=== PATIENT | male | born 1960 | race Caucasian/White ===

== ENCOUNTER → 2018-11-09 | Outpatient (CLI) | payer BC | LOC: RAD 07:57 | DX: Z01.818 Encounter for other preprocedural examination (principal); I10 Essential (primary) hypertension; R05 Cough ==

== ENCOUNTER → 2019-03-18 | Outpatient (CLI) | payer MEDICARE, OTHER | LOC: PT 13:27 | DX: Z01.818 Encounter for other preprocedural examination (principal) ==

== ENCOUNTER 2019-04-22 14:30 | Outpatient (RCR) | payer MEDICARE, OTHER | END 2019-04-22 15:00 | disposition still patient (30) | LOC: PT 14:30 | DX: M25.362 Other instability, left knee (principal); Z96.652 Presence of left artificial knee joint ==

== ENCOUNTER 2020-06-24 02:01 | Emergency (ER) | payer MEDICARE, OTHER ==
[~2020-06-24] VITALS: Ht 188 cm; Wt 172.7 kg
[2020-06-24] MEDS ORDERED: TENORMIN100 MG PO (02:12)
[2020-06-24] MEDS ORDERED: QUALITY CHOICE81 M2 PO (02:13)
[2020-06-24] MEDS ORDERED: PROSCAR PO (02:13)
[2020-06-24] MEDS ORDERED: FLOMAX0.4 MG PO (02:13)
[2020-06-24] MEDS ORDERED: FISH OIL REGUL300 MG PO (02:14)
[2020-06-24] MEDS ORDERED: PRILOSEC 20MG20 MG PO (02:14)
[2020-06-24] MEDS ORDERED: MOBIC15 M1 PO (02:14)
[2020-06-24] MEDS ORDERED: GNC NIACIN 250250 MG PO (02:15)
[2020-06-24] MEDS ORDERED: ESSENTIAL DAIL1 EACH PO (02:15)
[2020-06-24 03:23] LABS: EOS # 0.3 (0.04-0.40); EOS % 4.7 % (0.0-4.0); HEMATOCRIT 43.1 % (42.0-52.0); HEMOGLOBIN 14.6 g/dL (13.5-18.0); MEAN CELL VOLUME 91 fl (78-100); MEAN CORPUSCULAR HEMOGLOBIN 31 pg (27-31); MEAN CORPUSCULAR HGB CONC 34 g/dL (33-37); MEAN PLATELET VOLUME 8.9 fl (7.4-10.4); MONO # 0.6 (0.20-0.80); NEU # 3.3 (1.40-6.50); PLATELET COUNT 188 K/mm3 (130-400); RED BLOOD COUNT 4.73 M/mm3 (4.20-5.60); RED CELL DISTRIBUTION WIDTH 12.5 % (11.5-14.5); WHITE BLOOD COUNT 6.2 K/mm3 (4.8-10.8)
[2020-06-24 03:33] LABS: ALBUMIN 3.9 g/dL (3.5-5.0); POTASSIUM 4.3 mmol/L (3.5-5.1); SODIUM 140 mmol/L (136-145)
[2020-06-24 03:34] LABS: CALCIUM 8.4 mg/dL (8.3-10.5)
[2020-06-24 03:35] LABS: GLUCOSE 119 mg/dL (75-110); TOTAL PROTEIN 6.8 g/dL (6.4-8.3)
[2020-06-24 03:36] LABS: CARBON DIOXIDE 25 mmol/L (22-29)
[2020-06-24 03:37] LABS: TOTAL BILIRUBIN 0.5 mg/dL (0.2-1.2)
[2020-06-24 03:41] LABS: AST-SGOT 24 U/L (5-34)
[2020-06-24 03:42] LABS: ALT/SGPT 38 U/L (0-55)
[2020-06-24 03:48] LABS: TROPONIN-I < 0.03 ng/mL (<0.030)
[2020-06-24 03:52] LABS: URINE APPEARANCE CLEAR; URINE BILIRUBIN NEGATIVE (NEGATIVE); URINE BLOOD NEGATIVE (NEGATIVE); URINE COLOR YELLOW; URINE GLUCOSE NEGATIVE (NEGATIVE); URINE KETONE NEGATIVE (NEGATIVE); URINE LEUKOCYTE ESTERASE NEGATIVE (NEGATIVE); URINE NITRATE NEGATIVE (NEGATIVE); URINE PROTEIN(semi-quant) NEGATIVE (NEGATIVE); URINE UROBILINOGEN NORMAL (NORMAL); URINE WBC 0-1 /hpf (0-3)
[2020-06-24 03:53] LABS: URINE MUCUS PRESENT (NOT PRESENT)
[2020-06-24 04:38] VITALS: BP 162/85
== END 2020-06-24 04:38 | disposition home or self-care (01) ==
LOC: ED 02:01
PROVIDERS: Nurse Practitioner
DX: F41.9 Anxiety disorder, unspecified (principal); I10 Essential (primary) hypertension; F43.9 Reaction to severe stress, unspecified; Z88.1 Allergy status to other antibiotic agents; Z88.8 Allergy status to other drugs, medicaments and biological substances; Z79.82 Long term (current) use of aspirin

== ENCOUNTER 2021-02-21 20:58 | Emergency (ER) | payer MEDICARE, OTHER ==
[~2021-02-21 20:58] MED LIST: ESSENTIAL DAIL1 EACH PO; FISH OIL REGUL300 MG PO; FLOMAX0.4 MG PO; GNC NIACIN 250250 MG PO; MOBIC15 M1 PO; PRILOSEC 20MG20 MG PO; PROSCAR PO; QUALITY CHOICE81 M2 PO; TENORMIN100 MG PO
[2021-02-21] MEDS ORDERED: AMLODIPINE BESYL5 MG PO (21:56)
[2021-02-21 22:19] LABS: EOS # 0.03 (0.04-0.40); EOS % 0.3 % (0.0-4.0); HEMATOCRIT 43.3 % (42.0-52.0); HEMOGLOBIN 14.5 g/dL (13.5-18.0); LYMPH# 2.44 (1.50-4.00); MEAN CELL VOLUME 94 fl (78-100); MEAN CORPUSCULAR HEMOGLOBIN 32 pg (27-31); MEAN CORPUSCULAR HGB CONC 34 g/dL (33-37); MONO # 0.76 (0.20-0.80); NEU # 7.92 (1.40-6.50); PLATELET COUNT 224 K/mm3 (130-400); RED BLOOD COUNT 4.59 M/mm3 (4.20-5.60); RED CELL DISTRIBUTION WIDTH 12.4 % (11.5-14.5); WHITE BLOOD COUNT 11.2 K/mm3 (4.8-10.8)
[2021-02-21 22:28] LABS: ALBUMIN 3.9 g/dL (3.4-4.8); POTASSIUM 3.8 mmol/L (3.5-5.1)
[2021-02-21 22:30] LABS: CALCIUM 8.6 mg/dL (8.3-10.5)
[2021-02-21 22:31] LABS: TOTAL PROTEIN 6.7 g/dL (6.2-8.1)
[2021-02-21 22:33] LABS: TOTAL BILIRUBIN 0.4 mg/dL (0.2-1.2)
[2021-02-21 23:08] VITALS: BP 158/79
== END 2021-02-21 23:08 | disposition home or self-care (01) ==
LOC: ED 20:58
PROVIDERS: Nurse Practitioner Family
DX: I10 Essential (primary) hypertension (principal); R00.2 Palpitations; E66.9 Obesity, unspecified; Z87.891 Personal history of nicotine dependence; Z79.899 Other long term (current) drug therapy

== ENCOUNTER → 2021-09-04 | Outpatient (CLI) | payer MEDICARE, OTHER ==
[~2021-09-04] MED LIST changes: +AMLODIPINE BESYL5 MG PO
== END ==
LOC: RAD 08-28 11:30
DX: M17.11 Unilateral primary osteoarthritis, right knee (principal)

== ENCOUNTER 2022-04-12 18:44 | Emergency (ER) | payer MEDICARE, OTHER ==
[~2022-04-12] VITALS: Ht 188 cm; Wt 161.4 kg
[2022-04-12 19:20] LABS: BASO # 0.03 K/mm3 (0.02-0.10); EOS # 0.18 K/mm3 (0.04-0.40); EOS % 1.9 % (0.0-4.0); HEMATOCRIT 46.1 % (42.0-52.0); HEMOGLOBIN 16.2 g/dL (13.5-18.0); LYMPH# 2.44 K/mm3 (1.50-4.00); MEAN CELL VOLUME 91 fl (78-100); MEAN CORPUSCULAR HEMOGLOBIN 32 pg (27-31); MEAN CORPUSCULAR HGB CONC 35 g/dL (33-37); MEAN PLATELET VOLUME 8.4 fl (7.4-10.4); MONO # 0.82 K/mm3 (0.20-0.80); NEU # 5.75 K/mm3 (1.40-6.50); PLATELET COUNT 224 K/mm3 (130-400); RED BLOOD COUNT 5.08 M/mm3 (4.20-5.60); RED CELL DISTRIBUTION WIDTH 12.1 % (11.5-14.5); WHITE BLOOD COUNT 9.2 K/mm3 (4.8-10.8)
[2022-04-12 19:24] LABS: POTASSIUM 3.9 mmol/L (3.5-5.1)
[2022-04-12 19:25] LABS: CALCIUM 9.1 mg/dL (8.3-10.5)
[2022-04-12] MEDS ORDERED: BETAPACE AF80 M1 PO (19:42)
[2022-04-12] MEDS ORDERED: NOVAPLUS LO SQ (20:40)
[2022-04-12] MEDS ORDERED: WARFARIN SOD5 MG PO (20:40)
[2022-04-12 20:55] VITALS: BP 158/84
== END 2022-04-12 21:26 | disposition home or self-care (01) ==
LOC: ED 18:44
PROVIDERS: Family Medicine
DX: I48.91 Unspecified atrial fibrillation (principal); I10 Essential (primary) hypertension
CPT/HCPCS: J1650